=== PATIENT | male | born 1980 | race Caucasian/White ===

== ENCOUNTER 2021-03-24 12:56 | Emergency (ER) | payer SELFPAY ==
[2021-03-24 13:32] VITALS: BP 117/81; PULSE 99
--- NOTE | 2021-03-24 14:03 | EDM.PDOC ---
ED HPI GENERAL MEDICAL PROBLEM - General Chief Complaint: Fever Stated Complaint: maybe covid? Time Seen by Provider: 03/24/21 13:18 Source of Information: Reports: Patient - History of Present Illness INITIAL COMMENTS - FREE TEXT/NARRATIVE: pt left prior to being seen by provider - Related Data Allergies Allergy/AdvReac Type Severity Reaction Status Date / Time No Known Allergies Allergy Verified 03/24/21 13:24 Past Medical History Musculoskeletal History: Reports: Back Pain, Chronic Social & Family History - Tobacco Use Tobacco Use Status *Q: Never Tobacco User ED ROS ENT - Review of Systems Review Of Systems: See Below ED EXAM, ENT - Physical Exam Exam: See Below Course - Vital Signs Last Recorded V/S: Last Vital Signs Temp 36.6 C 03/24/21 13:30 Pulse 99 03/24/21 13:30 Resp 14 03/24/21 13:30 BP 117/81 03/24/21 13:30 Pulse Ox - Orders/Labs/Meds Labs: Laboratory Tests 03/24/21 Range/Units 13:25 SARS-CoV-2 RNA ([facility]) Negative (NEGATIVE) Departure - Departure Time of Disposition: 14:03 Disposition: [facility] 07 Clinical Impression: Fever Qualifiers: Fever type: unspecified Qualified Code(s): R50.9 - Fever, unspecified - Discharge Information Referrals: PCP,None [Primary Care Provider] - Forms: ED Department Discharge Sepsis Event Note (ED) - Focused Exam Vital Signs: Vital Signs Temp Pulse Resp BP 03/24/21 13:30 36.6 C 99 14 117/81
== END 2021-03-24 14:16 | disposition left against medical advice (07) ==
LOC: JP.ED 12:56
DX: R50.9 Fever, unspecified (principal); Z20.822 Contact with and (suspected) exposure to COVID-19
CPT/HCPCS: U0002